=== PATIENT | male | born 1995 | race Hispanic/Latino ===

== ENCOUNTER 2017-06-14 15:22 | Emergency (ER) | payer BC ==
[2017-06-14 15:57] LABS: #Eosinphils 0.1 thou/uL (0.0-0.7); #Lymphocytes 2.4 thou/uL (1.20-3.40); #Monocytes 0.9 thou/uL (0.11-0.59); %Basophils 0.3 % (0.0-1.0); %Eosinophils 0.5 % (0.0-10.0); %Lymphocytes 16.7 % (21.0-51.0); %Monocytes 6.3 % (0.0-10.0); Hematocrit 52.3 % (42.0-52.0); Mean Platelet Volume 6.8 fL (7.4-10.4); White Blood Cell (WBC) Count 14.5 thou/uL (4.8-10.8)
[2017-06-14 15:59] LABS: Bilirubin Negative (Negative); Blood, Urine Negative (Negative); Glucose, Urine (Dipstick) Negative (Negative); Ketone, Urine 15 mg/dL (Negative); Nitrite Negative (Negative); Protein, Urine (Dipstick) Trace mg/dL (Neg-Trace)
[2017-06-14] MEDS ORDERED: Dicyclomine HCl 20 mg/2 ml Ampule ONE (16:02)
[2017-06-14] MEDS ORDERED: Ondansetron HCl/PF 4 MG/2 ML Vial ONE ×2 (16:02→16:28)
[2017-06-14] MEDS ORDERED: Ketorolac Tromethamine 30 MG/ML VIAL ONE (16:02)
[2017-06-14] MEDS ORDERED: Famotidine/PF 20 mg/2ml Vial ONE (16:02)
[2017-06-14 16:20] LABS: ALT (SGPT) 29 U/L (8-55); AST (SGOT) 19 U/L (5-34); Alkaline Phosphatase 67 U/L (40-150); Anion Gap 16 mmol/L (10-20); BUN (Urea Nitrogen) 18 mg/dL (8.9-20.6); Bilirubin, Total 0.9 mg/dL (0.2-1.2); Calc. Creatinine Clearance 0 mL/min (70-130); Calcium 9.9 mg/dL (7.8-10.44); Carbon Dioxide 24 mmol/L (22-29); Chloride 103 mmol/L (98-107); Estimated GFR-MDRD Greater than 90; Globulin 3.4 g/dL (2.4-3.5); Protein, Total 8.5 g/dL (6.0-8.3)
== END 2017-06-14 17:43 | disposition home or self-care (01) ==
LOC: ERS 15:22
DX: R11.0 Nausea (principal); R19.7 Diarrhea, unspecified
CPT/HCPCS: 80053; 81003; 85025; J1885; J2405; S0028

== ENCOUNTER 2017-06-14 22:13 | Observation (INO) | payer BC ==
[~2017-06-14 22:13] MED LIST: ISOVUE-370 76%-LOCM 1 ML ONE; Iopamidol 370 76% 50 ML VIAL FS ONE
[2017-06-14] MEDS ORDERED: Ondansetron HCl/PF 4 MG/2 ML Vial ONE (23:10)
[2017-06-15] MEDS ORDERED: Meropenem 1 GM in Sodium Chloride 0.9% 100 ML IVPB SCH ×2 (02:00→10:30)
[2017-06-15 03:41] VITALS: BMI 36.5
[2017-06-15] MEDS ORDERED: Ondansetron HCl/PF 4 MG/2 ML Vial IVP PRN ×2 (03:42→11:05)
[2017-06-15] MEDS ORDERED: Ondansetron ODT 4 MG TAB SL PRN (03:42)
[2017-06-15] MEDS ORDERED: D5 1/2 NS w/20 mEq KCL 1,000 ML IV SCH (03:45)
[2017-06-15] MEDS ORDERED: Fentanyl 100 MCG/2 ML VIAL ONE ×3 (07:31→10:40)
--- NOTE | 2017-06-15 07:50 | CT ---
PRELIMINARY REPORT/[facility]/EMERGENCY AFTER HOURS PROCEDURE: EXAM: CT Abdomen and Pelvis With Intravenous Contrast CLINICAL HISTORY: 21 years old, male; Pain; Abdominal pain; Generalized TECHNIQUE: Axial computed tomography images of the abdomen and pelvis with intravenous contrast. Coronal reformatted images were created and reviewed. CONTRAST: 100 mL of ISOVUE administered intravenously. COMPARISON: No relevant prior studies available. FINDINGS: Lower thorax: No acute findings. ABDOMEN: Liver: Normal. Gallbladder and bile ducts: Normal. Pancreas: Normal. Spleen: Normal. Adrenals: Normal. Kidneys and ureters: Normal. Stomach and bowel: Normal. Appendix: Appendix is abnormally dilated, measuring 11 mm in maximum outer diameter. Mild periappend iceal inflammatory stranding. Appendix is located in conventional position. No perforation or absces s. PELVIS: Bladder: Normal. Reproductive: Normal as visualized. ABDOMEN and PELVIS: Intraperitoneal space: Normal. No free air. No significant fluid collection. Bones/joints: No acute fracture. No dislocation. Soft tissues: Normal. Vasculature: Phleboliths within the pelvis. No abdominal aortic aneurysm. Lymph nodes: Normal. IMPRESSION: 1. Acute appendicitis, without evidence of perforation or abscess. 2. Incidental/non-acute findings are described above. Thank you for allowing us to participate in the care of your patient. Dictated and Authenticated by: David Little MD 06/15/2017 1:29 AM Central Time ([place] \T\ [place]) FINAL REPORT CT ABDOMEN AND PELVIS WITH ORAL AND IV CONTRAST I agree with the preliminary report given by Dr. David Little of [facility]. POS: [facility]
[2017-06-15] MEDS ORDERED: Bupivacaine HCl 0.5%/Epinephrine 1:200,000/PF 30 ml Vial ONE (08:41)
--- NOTE | 2017-06-15 08:56 | HP ---
HISTORY OF PRESENT ILLNESS: Evangelista Teague is a 21-year-old senior [facility] presents with 24 hours of abdominal pain to the emergency room. Evaluation unremarkable, lara gnosed with gastroenteritis, sent home. The pain localized to the right lower quadrant, he returned to the emergency room last night. A CAT scan performed verified appendicitis. He is admitted over night with intravenous antibiotics and now presents to undergo laparoscopic appendectomy. ALLERGIES: None. TOBACCO: None. ALCOHOL: Rarely socially. MEDICATIONS: None routinely. PAST SURGICAL HISTORY: Noncontributory. REVIEW OF SYSTEMS: Noncontributory. PHYSICAL EXAMINATION: VITAL SIGNS: Weight 113 kilograms, 141/80, 58, 18, 97.8 degrees. HEENT: Unremarkable. LUNGS: Clear to auscultation. CARDIAC: Regular rate and rhythm without murmur or gallop. ABDOMEN: Soft, tenderness in his right lower quadrant with guarding and rebound. EXTREMITIES: Unremarkable. LABORATORY: White count 14, hemoglobin 17. Comprehensive metabolic profile unremarkable. CAT scan findings consistent with acute appendicitis. ASSESSMENT AND PLAN: Acute appendicitis. Recommend laparoscopic video appendectomy. Risk of infec tion, bleeding, reoperation and open procedure explained. Questions answered and he consents.
[2017-06-15] MEDS ORDERED: FLU VACC QS2017-18 36 mo. & older 0.5 ML SYRINGE IM ONE (09:00)
[2017-06-15] MEDS ORDERED: Midazolam HCl 2 mg/2 ml Vial ONE (09:32)
[2017-06-15] MEDS ORDERED: Propofol 200 MG/20 ML VIAL ONE ×2 (09:40)
[2017-06-15] MEDS ORDERED: Ondansetron HCl/PF 4 MG/2 ML Vial ONE (09:40)
[2017-06-15] MEDS ORDERED: Lidocaine 1% PF 5 ML VIAL ONE (09:40)
[2017-06-15] MEDS ORDERED: Succinylcholine Chloride 20 MG/ML 10 ml SYRINGE FS ONE (09:40)
[2017-06-15] MEDS ORDERED: Metoclopramide HCl 10 MG/2 ML VIAL ONE (09:40)
[2017-06-15] MEDS ORDERED: Glycopyrrolate 0.2 MG/ML 5 ML SYRINGE ONE (09:40)
[2017-06-15] MEDS ORDERED: Dexamethasone 20 MG/5 ML VIAL ONE (09:40)
[2017-06-15] MEDS ORDERED: Ketorolac Tromethamine 30 MG/ML VIAL ONE (09:40)
[2017-06-15] MEDS ORDERED: Meperidine HCl/PF 25 MG/ML VIAL ONE (10:30)
[2017-06-15] MEDS ORDERED: Acetaminophen 500 MG TAB PO PRN (11:00)
[2017-06-15] MEDS ORDERED: Ibuprofen 600 MG TAB PO PRN (11:00)
[2017-06-15] MEDS ORDERED: traMADol HCl 50 MG TAB PO PRN ×2 (11:00)
[2017-06-15] MEDS ORDERED: Meperidine HCl/PF 25 MG/ML VIAL SLOW IVP PRN (11:05)
[2017-06-15] MEDS ORDERED: Promethazine HCl 25 MG/ML VIAL IM PRN (11:05)
[2017-06-15] MEDS ORDERED: Promethazine HCl 25 MG/ML VIAL SLOW IVP PRN (11:05)
--- NOTE | 2017-06-15 13:11 | OP ---
DATE OF PROCEDURE: 06/15/2017 PREOPERATIVE DIAGNOSIS: Acute appendicitis. POSTOPERATIVE DIAGNOSIS: Acute appendicitis. PROCEDURES: Laparoscopic video appendectomy. SURGEON: Dr. Oziel Ahuja ANESTHESIA: General. Local 0.5% Marcaine with epinephrine, 30 mL. PROCEDURE: The patient was taken to the operating room where under general anesthesia, Steiner cathet er placed at the beginning of the procedure and removed at the end. Abdomen clipped of hair, prepar ed with chloraprep, draped in routine fashion. Local anesthetic 0.5% Marcaine with epinephrine infi ltrated in the skin and subcutaneous tissue about all port sites, total volume used. Infraumbilical incision made and pneumoperitoneum to 15 mmHg obtained with the Veress needle, replacing it with a 5 port. Video laparoscope inserted. Right lateral subcostal incision made and a [address] Sup rapubic incision made and a 12 port placed. Appendix was acutely inflamed. Mesoappendix taken down with LigaSure. The stump of the appendix, dividing endo MELINA blue load stapler. Stapled cecal stum p with had some oozing and clips were applied obtaining good hemostasis. Appendix removed through an Endobag and submitted to Pathology. Good hemostasis ensured with the cautery and LigaSure. Irri vanessa and pneumoperitoneum evacuated. Suprapubic fascia approximated with 0 Vicryl suture, GraNee ne edle. All skin incisions approximated with interrupted subdermal 4-0 Monocryl and DermaGlue applied .
[2017-06-15 15:48] VITALS: BP 131/70; TEMP 99.2
== END 2017-06-15 15:48 | disposition home or self-care (01) ==
LOC: ERS 22:13 → 3SE 06-15 03:23
PROVIDERS: ADMIT Specialist; ATTEND Specialist
PROC: 0DTJ4ZZ Resection of Appendix, Percutaneous Endoscopic Approach (ICD-10-PCS; principal; 2017-06-15)
DX: K35.3 Acute appendicitis with localized peritonitis (principal)
CPT/HCPCS: 74177; 80053; 81003; 85025; 88304; 96361; 96365; 96372; 96374; 96375; 96376; G0378; J0131; J0670; J1100; J1170; J1885; J2001; J2175; J2185; J2250; J2270; J2405; J2704; J2765; J3010; J7050; S0028